=== PATIENT | male | born 1950 | race Caucasian/White ===

== ENCOUNTER → 2016-08-25 | Outpatient (CLI) | payer MEDICARE ==
[2016-08-25 15:41] LABS: CHLORIDE,CL 104 mmol/L (98-110); SODIUM,NA 138 mmol/L (136-146)
--- NOTE | 2016-08-25 15:45 | CR ---
EXAMINATION: Two-view chest (PA and Lateral views). HISTORY: Chest pain. FINDINGS: The trachea is midline. The cardiomediastinal silhouette is within normal limits. No pulmonary infil trates, effusions or pneumothorax. Osseous structures appear unremarkable. IMPRESSION: No acute cardiopulmonary process.
== END ==
LOC: MW.CHRC 14:22
PROVIDERS: ATTEND Family Medicine
DX: R07.9 Chest pain, unspecified (principal); I10 Essential (primary) hypertension; Z91.14 Patient's other noncompliance with medication regimen
CPT/HCPCS: 36415; 71020; 71020-26; 80053; 84484; 85025; 99214

== ENCOUNTER 2016-08-26 16:08 | Observation (INO) | payer MEDICARE ==
[2016-08-26] MEDS ORDERED: Sodium Chloride 0.9% 2.5 ML Syringe FLUSH PRN ×2 (16:32)
[2016-08-26] MEDS ORDERED: Sodium Chloride 0.9% 10 ML Syringe FLUSH PRN ×2 (16:32)
[2016-08-26] MEDS ORDERED: Lisinopril 5 MG Tab PO ONE (16:44)
--- NOTE | 2016-08-26 16:44 | EDM.PDOC ---
ED HPI GENERAL MEDICAL PROBLEM - General Chief Complaint: General Stated Complaint: HIGH BLOOD PRESSURE Time Seen by Provider: 08/26/16 16:26 Source of Information: Reports: Patient History Limitations: Reports: No limitations - History of Present Illness INITIAL COMMENTS - FREE TEXT/NARRATIVE: HISTORY AND PHYSICAL: History of present illness: [65-year-old male with a history of difficult to control hypertension now presents emergent department because his blood pressure is very elevated. patient states he was on lisinopril and amlodipine prescribed by regulatory affairs associate at [facility] years ago. Today he saw a family practice doctor in the office for the first time . She increased his dose of amlodipine but apparently there was a miscommunication and patient thought he was supposed to stop his lisinopril which he did he states he's been taking the amlodipine but he did not take his other blood pressure medicine yesterday or today. Patient states she's had some recent chest pain not like he went to his primary care doctor yesterday, where he was prescribed nitroglycerin for use as needed and an EKG had been done in the office. he has not had any chest pain today. No nausea vomiting diaphoresis or shortness of air. Patient does not smoke cigarettes he does occasionally smoke cigars. He is not treated for high cholesterol has never been known to be diabetic and has no family history of heart disease. He had a stress test many years ago which he said was unremarkable. He does take a full-strength aspirin prescribe as doctor but he did not take it today. Review of systems: As per history of present illness and below otherwise all systems reviewed and negative. Past medical history: As per history of present illness and as reviewed below otherwise noncontributory. Surgical history: As per history of present illness and as reviewed below otherwise noncontributory. Social history: No reported history of drug or alcohol abuse. Family history: As per history of present illness and as reviewed below otherwise noncontributory. Physical exam: HEENT: Atraumatic, normocephalic, pupils reactive, negative for conjunctival pallor or scleral icterus, mucous membranes moist, throat clear, neck supple, nontender, trachea midline. Lungs: Clear to auscultation, breath sounds equal bilaterally, chest nontender. Heart: S1S2, regular, negative for clicks, rubs, or JVD. Abdomen: Soft, nondistended, nontender. Negative for masses or hepatosplenomegaly. Negative for costovertebral tenderness. Pelvis: Stable nontender. Genitourinary: Deferred. Rectal: Deferred. Extremities: Atraumatic, negative for cords or calf pain. Neurovascular unremarkable. Neuro: Awake, alert, oriented. Cranial nerves II through XII unremarkable. Cerebellum unremarkable. Motor and sensory unremarkable throughout. Exam nonfocal. Diagnostics: [] Therapeutics: [] Impression: [] Plan: [Patient with accelerated hypertension in the setting of known difficult to control hypertension and variable medication compliance. Chest pain recently and yesterday but not today. EKG with mild ST depression inferiorly and ST segment depression with T wave inversion V4 through V6. Normal sinus rhythm at 80 no STEMI. Troponin negative labs otherwise unremarkable with no evident evidence of endorgan injury. Patient has had no recent cardiac workup and given his recent chest pain and his accelerated hypertension we'll do observation telemetry admission optimize blood pressure control and establish stability as well as for cardiac workup. Definitive disposition and diagnosis as appropriate pending reevaluation and review of above. - Related Data Allergies Allergy/AdvReac Type Severity Reaction Status Date / Time No Known Allergies Allergy Verified 08/26/16 16:30 Home Meds: Home Meds Aspirin [Ecotrin] 81 mg PO DAILY 08/26/16 [History] Lisinopril [Zestril] 5 mg PO DAILY 08/26/16 [History] Nitroglycerin [Nitrostat] PRN 08/26/16 [History] amLODIPine [Norvasc] 10 mg PO BEDTIME 08/26/16 [History] ED ROS GENERAL - Review of Systems Review Of Systems: See Below (Per history of present illness) ED EXAM, GENERAL - Physical Exam Exam: See Below (Per history of present illness) Course - Vital Signs Last Recorded V/S: Last Vital Signs Temp 36.7 C 08/26/16 16:26 Pulse 71 08/26/16 17:39 Resp 18 08/26/16 17:39 BP 209/105 H 08/26/16 17:49 Pulse Ox 98 08/26/16 17:39 - Orders/Labs/Meds Orders: Active Orders 24 hr Category Date Time Status EKG Documentation Completion [RC] STAT Care 08/26/16 16:32 Active Peripheral IV Care [RC] . DIRECTED Care 08/26/16 16:32 Active Chest 1V Frontal [CR] Stat Exams 08/26/16 16:32 Taken Sodium Chloride 0.9% [Saline Flush] Med 08/26/16 16:32 Active 10 ml FLUSH ASDIRECTED PRN Sodium Chloride 0.9% [Saline Flush] Med 08/26/16 16:32 Active 10 ml FLUSH ASDIRECTED PRN Sodium Chloride 0.9% [Saline Flush] Med 08/26/16 16:32 Active 2.5 ml FLUSH ASDIRECTED PRN Sodium Chloride 0.9% [Saline Flush] Med 08/26/16 16:32 Active 2.5 ml FLUSH ASDIRECTED PRN Peripheral IV Insertion Adult [OM.PC] Stat Oth 08/26/16 16:32 Ordered Medication Orders Sodium Chloride (Saline Flush) 10 ml FLUSH ASDIRECTED PRN PRN Reason: Keep Vein Open Sodium Chloride (Saline Flush) 2.5 ml FLUSH ASDIRECTED PRN PRN Reason: Keep Vein Open Sodium Chloride (Saline Flush) 10 ml FLUSH ASDIRECTED PRN PRN Reason: Keep Vein Open Sodium Chloride (Saline Flush) 2.5 ml FLUSH ASDIRECTED PRN PRN Reason: Keep Vein Open Labs: Laboratory Tests 08/26/16 08/26/16 08/26/16 Range/Units 16:44 16:44 16:44 WBC 10.86 (4.0-11.0) K/uL RBC 5.35 (4.50-5.90) M/uL Hgb 16.3 (13.0-17.0) g/dL Hct 45.3 (38.0-50.0) % MCV 84.7 (80.0-98.0) fL MCH 30.5 (27.0-32.0) pg MCHC 36.0 (31.0-37.0) g/dL RDW Std Deviation 38.6 (28.0-62.0) fl RDW Coeff of Kimo 13 (11.0-15.0) % Plt Count 175 (150-400) K/uL MPV 8.90 (7.40-12.00) fL Neut % (Auto) 64.6 (48.0-80.0) % Lymph % (Auto) 19.5 (16.0-40.0) % Jackson % (Auto) 13.3 (0.0-15.0) % Eos % (Auto) 2.2 (0.0-7.0) % Baso % (Auto) 0.4 (0.0-1.5) % Neut # (Auto) 7.0 H (1.4-5.7) K/uL Lymph # (Auto) 2.1 (0.6-2.4) K/uL Jackson # (Auto) 1.4 H (0.0-0.8) K/uL Eos # (Auto) 0.2 (0.0-0.7) K/uL Baso # (Auto) 0.0 (0.0-0.1) K/uL Nucleated RBC % 0.0 /100WBC Nucleated RBCs # 0 K/uL Sodium 138 (136-146) mmol/L Potassium 3.9 (3.5-5.1) mmol/L Chloride 105 (98-110) mmol/L Carbon Dioxide 21 (21-31) mmol/L BUN 20 (6.0-23.0) mg/dL Creatinine 1.1 (0.6-1.5) mg/dL Est Cr Clr Drug Dosing 68.21 mL/min Estimated GFR (MDRD) > 60.0 ml/min Glucose 113 H (60-110) mg/dL Calcium 9.8 (8.8-10.8) mg/dL Troponin I < 0.10 (0.0-0.29) NG/ML Meds: Medications Generic Name Dose Route Start Last Admin Trade Name Freq PRN Reason Stop Dose Admin Sodium Chloride 10 ml 08/26/16 16:32 Saline Flush FLUSH ASDIRECTED PRN Keep Vein Open Sodium Chloride 2.5 ml 08/26/16 16:32 Saline Flush FLUSH ASDIRECTED PRN Keep Vein Open Sodium Chloride 10 ml 08/26/16 16:32 Saline Flush FLUSH ASDIRECTED PRN Keep Vein Open Sodium Chloride 2.5 ml 08/26/16 16:32 Saline Flush FLUSH ASDIRECTED PRN Keep Vein Open Discontinued Medications Generic Name Dose Route Start Last Admin Trade Name Freq PRN Reason Stop Dose Admin Aspirin 324 mg 08/26/16 17:54 08/26/16 18:05 Aspirin PO 08/26/16 17:55 324 mg ONETIME ONE Administration Clonidine HCl 0.2 mg 08/26/16 17:43 08/26/16 17:49 Catapres PO 08/26/16 17:44 0.2 mg ONETIME ONE Administration Lisinopril 5 mg 08/26/16 16:44 08/26/16 17:03 Prinivil PO 08/26/16 16:45 5 mg ONETIME ONE Administration Nitroglycerin 1 gm 08/26/16 18:06 Nitro-Bid 2% TOP 08/26/16 18:07 ONETIME ONE Departure - Departure Time of Disposition: 18:16 Disposition: Refer to Observation Condition: good Clinical Impression: Accelerated hypertension, Chest pain, Abnormal EKG - My Orders Last 24 Hours: My Active Orders 08/26/16 16:32 EKG Documentation Completion [RC] STAT Peripheral IV Care [RC] . DIRECTED Chest 1V Frontal [CR] Stat Sodium Chloride 0.9% [Saline Flush] 10 ml FLUSH ASDIRECTED PRN Sodium Chloride 0.9% [Saline Flush] 10 ml FLUSH ASDIRECTED PRN Sodium Chloride 0.9% [Saline Flush] 2.5 ml FLUSH ASDIRECTED PRN Sodium Chloride 0.9% [Saline Flush] 2.5 ml FLUSH ASDIRECTED PRN Peripheral IV Insertion Adult [OM.PC] Stat - Assessment/Plan Last 24 Hours: My Active Orders 08/26/16 16:32 EKG Documentation Completion [RC] STAT Peripheral IV Care [RC] . DIRECTED Chest 1V Frontal [CR] Stat Sodium Chloride 0.9% [Saline Flush] 10 ml FLUSH ASDIRECTED PRN Sodium Chloride 0.9% [Saline Flush] 10 ml FLUSH ASDIRECTED PRN Sodium Chloride 0.9% [Saline Flush] 2.5 ml FLUSH ASDIRECTED PRN Sodium Chloride 0.9% [Saline Flush] 2.5 ml FLUSH ASDIRECTED PRN Peripheral IV Insertion Adult [OM.PC] Stat
[2016-08-26 17:09] LABS: CHLORIDE,CL 105 mmol/L (98-110); SODIUM,NA 138 mmol/L (136-146)
[2016-08-26] MEDS ORDERED: cloNIDine 0.1 MG Tab PO ONE (17:43)
[2016-08-26] MEDS ORDERED: Aspirin 81 MG Tab.Chew PO ONE (17:54)
[2016-08-26] MEDS ORDERED: Nitroglycerin 2% Oint 1 GM UD Packet TOP ONE (18:06)
--- NOTE | 2016-08-26 19:32 | PCM.HP ---
[id number] Diagnosis/Problem Admission Diagnosis/Problem Chest pain hypertensive urgency Source of Information: Patient History Limitations: Reports: No limitations - History of Present Illness Symptom Onset Date: 08/25/16 Duration of Symptoms: Reports: Minutes: Location: Reports: chest Quality: Reports: Other (discomfort he illustrates with mild pressure of thumb) Severity: mild Improves with: Reports: None Worsens with: Reports: None Associated Symptoms: Reports: no other symptoms Chest Pain Score (Numeric/FACES): 0 - Related Data Allergies/Adverse Reactions: Allergies Allergy/AdvReac Type Severity Reaction Status Date / Time No Known Allergies Allergy Verified 08/26/16 16:30 Home Medications: Home Meds Aspirin [Ecotrin] 81 mg PO DAILY 08/26/16 [History] Losartan [Cozaar] 100 mg PO DAILY #30 tablet 08/27/16 [Rx] amLODIPine [Norvasc] 10 mg PO BEDTIME #30 tablet 08/27/16 [Rx] cloNIDine [Catapres] 0.1 mg PO Q12HR #60 tablet 08/27/16 [Rx] Past Medical History HEENT History: Reports: None Cardiovascular History: Reports: High cholesterol (was 247 [id number]), Hypertension Respiratory History: Reports: None Gastrointestinal History: Reports: None Genitourinary History: Reports: None Musculoskeletal History: Reports: Gout (uric acid 8.9 2010. unclear if on allopurinol at that time. reports taking it prn only) Neurological History: Reports: None Psychiatric History: Reports: None Endocrine/Metabolic History: Reports: None Hematologic History: Reports: None Immunologic History: Reports: None Oncologic (Cancer) History: Reports: None Dermatologic History: Reports: None - Infectious Disease History Infectious Disease History: Reports: None - Past Surgical History Head Surgeries/Procedures: Reports: None HEENT Surgical History: Reports: None Cardiovascular Surgical History: Reports: None Respiratory Surgical History: Reports: None GI Surgical History: Reports: Hernia, abdominal Male Surgical History: Reports: None Musculoskeletal Surgical History: Reports: None Dermatological Surgical History: Reports: None Social & Family History - Family History Family Medical History: Noncontributory (parents lived to 90ies 5 siblings ok) Musculoskeletal: Reports: None - Tobacco Use Smoking Status *Q: Current Some Day Smoker Tobacco Use Within Last Twelve Months: Cigars (does not inhale) Years of Tobacco use: 40 Packs/Tins Daily: 0 Second Hand Smoke Exposure: No - Caffeine Use Caffeine Use: Reports: None - Alcohol Use Days Per Week of Alcohol Use: 1 Number of Drinks Per Day: 1 Total Drinks Per Week: 1 Alcohol Use in Last Twelve Months: Yes - Recreational Drug Use Recreational Drug Use: No - Living Situation & Occupation Social History 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, still does various jobs for farmers , drives truck H&P Review of Systems - Review of Systems: Review Of Systems: See Below General: Reports: no symptoms HEENT: Reports: no symptoms Pulmonary: Reports: Shortness of Breath (pushing snow in winter) Cardiovascular: Reports: chest pain (seems random,not exertional) Gastrointestinal: Reports: No symptoms Genitourinary: Reports: no symptoms Musculoskeletal: Reports: joint pain Skin: Reports: no symptoms Psychiatric: Reports: no symptoms Neurological: Reports: Other (claims poor memory, forgets to take pills) Hematologic/Lymphatic: Reports: no symptoms Immunologic: Reports: no symptoms Exam - Exam Exam: See Below - Vital Signs Vital Signs: Last Vital Signs Temp 36.4 C 08/26/16 18:40 Pulse 74 08/26/16 18:40 Resp 18 08/26/16 18:40 BP 228/118 H 08/26/16 18:40 Pulse Ox 96 08/26/16 18:40 Weight: 89.358 kg - Exam General: alert, oriented HEENT: Conjunctiva clear Neck: trachea midline Lungs: Clear to auscultation Cardiovascular: regular rate, regular rhythm Abdomen: normal bowel sounds (Male) Exam: Deferred Rectal (Males) Exam: Deferred Back Exam: normal inspection Extremities: normal inspection Skin: warm, intact Neurological: cranial nerves intact Neuro Extensive - Mental Status: alert, oriented x3 Neuro Extensive - Motor, Sensory, Reflexes: normal gait Psychiatric: labile mood - Patient Data Result Diagrams: 08/26/16 16:44 08/26/16 16:44 *Q Meaningful Use (ADM) - VTE *Q VTE Criteria *Q: - Stroke *Q Stroke Criteria *Q: - AMI *Q AMI Criteria *Q: Problem List Initiated/Reviewed/Updated: Yes Orders Last 24hrs: Active Orders 24 hr Category Date Time Status Splinting [RC] ASDIRECTED Care 08/26/16 18:25 Active Telemetry Monitoring [Cardiac Monitoring] [RC] Q8H Care 08/26/16 18:20 Active Medication Orders Sodium Chloride (Saline Flush) 10 ml FLUSH ASDIRECTED PRN PRN Reason: Keep Vein Open Sodium Chloride (Saline Flush) 2.5 ml FLUSH ASDIRECTED PRN PRN Reason: Keep Vein Open Sodium Chloride (Saline Flush) 10 ml FLUSH ASDIRECTED PRN PRN Reason: Keep Vein Open Sodium Chloride (Saline Flush) 2.5 ml FLUSH ASDIRECTED PRN PRN Reason: Keep Vein Open Assessment/Plan Comment:: chest pain, possibly angina though pts description is very vague Hypertension that pt claims is lifelong from childhood with recent hypertensive urgency iHyperuricemia and intercritical gout continue amlodipine 10 losartan 100 clonidine 0.2 willprobably stop NTG paste for headache
[2016-08-26] MEDS: Hydrochlorothiazide/Losartan 12.5-50 mg Tab PO SCH (20:15)
[2016-08-26] MEDS: cloNIDine 0.1 MG Tab PO SCH (20:16)
[2016-08-27] MEDS: cloNIDine 0.1 MG Tab PO SCH (07:59)
[2016-08-27] MEDS: Hydrochlorothiazide/Losartan 12.5-50 mg Tab PO SCH (07:59)
[2016-08-27] MEDS ORDERED: Hydrochlorothiazide/Losartan 12.5-50 mg Tab PO SCH (09:00)
--- NOTE | 2016-08-27 11:56 | PCM.PN ---
[id number] he had " a little" or not), tolerating diet - Review of Systems General: Reports: No Symptoms HEENT: Reports: no symptoms Pulmonary: Reports: no symptoms Cardiovascular: Reports: No Symptoms Gastrointestinal: Reports: No symptoms Genitourinary: Reports: no symptoms Musculoskeletal: Reports: no symptoms Skin: Reports: no symptoms Neurological: Reports: No Symptoms Psychiatric: Reports: no symptoms - Patient Data Vitals - most recent: Last Vital Signs Temp 36.6 C 08/27/16 08:00 Pulse 67 08/27/16 08:00 Resp 16 08/27/16 08:00 BP 129/73 08/27/16 08:00 Pulse Ox 96 08/27/16 08:00 Weight - most recent: 89.358 kg I&O - last 24 hours: Intake & Output 08/26/16 08/27/16 08/27/16 22:59 06:59 14:59 Intake Total 600 Output Total 1050 Balance -450 Lab Results last 24 hrs: Laboratory Results - last 24 hr 08/26/16 08/27/16 Range/Units 23:50 06:06 Troponin I < 0.10 < 0.10 (0.0-0.29) NG/ML Med Orders - Current: Current Medications Clonidine HCl (Catapres) 0.1 mg PO Q12HR [facility] Last Admin: 08/27/16 07:59 Dose: 0.1 mg HCTZ/Losartan Potassium (Hyzaar 50-12.5 Mg) 1 tab PO DAILY [facility] Last Admin: 08/27/16 07:59 Dose: 1 tab Sodium Chloride (Saline Flush) 10 ml FLUSH ASDIRECTED PRN PRN Reason: Keep Vein Open Sodium Chloride (Saline Flush) 2.5 ml FLUSH ASDIRECTED PRN PRN Reason: Keep Vein Open Sodium Chloride (Saline Flush) 10 ml FLUSH ASDIRECTED PRN PRN Reason: Keep Vein Open Sodium Chloride (Saline Flush) 2.5 ml FLUSH ASDIRECTED PRN PRN Reason: Keep Vein Open Discontinued Medications Aspirin (Aspirin) 324 mg PO ONETIME ONE Stop: 08/26/16 17:55 Last Admin: 08/26/16 18:05 Dose: 324 mg Clonidine HCl (Catapres) 0.2 mg PO ONETIME ONE Stop: 08/26/16 17:44 Last Admin: 08/26/16 17:49 Dose: 0.2 mg HCTZ/Losartan Potassium (Hyzaar 50-12.5 Mg) 1 tab PO DAILY [facility] Lisinopril (Prinivil) 5 mg PO ONETIME ONE Stop: 08/26/16 16:45 Last Admin: 08/26/16 17:03 Dose: 5 mg Nitroglycerin (Nitro-Bid 2%) 1 gm TOP ONETIME ONE Stop: 08/26/16 18:07 Last Admin: 08/26/16 18:46 Dose: 1 gm - Exam General: alert HEENT: Pupils equal Neck: trachea midline Lungs: Clear to auscultation Cardiovascular: Regular Rate Abdomen: bowel sounds present (Male) Exam: Deferred Back Exam: normal inspection Extremities: no edema Skin: warm Wound/Incisions: healing well Neurological: no new focal deficit Psy/Mental Status: alert - Problem List Review Problem List Initiated/Reviewed/Updated: Yes - My Orders Last 24 Hours: My Active Orders 08/26/16 18:20 Telemetry Monitoring [Cardiac Monitoring] [RC] Q8H 08/26/16 20:02 Hydrochlorothiazide/Losartan [Hyzaar 50-12.5 MG] 1 tab PO DAILY 08/26/16 21:00 cloNIDine [Catapres] 0.1 mg PO Q12HR 08/27/16 09:38 Code Status [Resuscitation Status] Routine - Assessment Assessment:: ECG and troponins normal moderately unfavorable lipids with [id number] [id number] will D/C on usual meds thinks he will go to clinic for follow up. Will defer to them regarding antilipid and gout regimen - Plan Plan:: chest pain, possibly angina though pts description is very vague Hypertension that pt claims is lifelong from childhood with recent hypertensive urgency iHyperuricemia and intercritical gout continue amlodipine 10 losartan 100 clonidine 0.2 willprobably stop NTG paste for headache
--- NOTE | 2016-08-27 12:01 | PCM.DCSUM1 ---
Discharge Summary - Hospital Course Free Text/Narrative:: Pt admitted with vague, non exerttional chest discomfort and risk factors for CAD. Ruled out - Discharge Data Discharge Date: 08/27/16 Discharge Disposition: Home, Self-Care 01 Condition: Fair - Patient Instructions Diet: Heart Healthy Diet (printed instruction provided) Activity: As Tolerated - Discharge Plan Home Medications: Home Meds Aspirin [Ecotrin] 81 mg PO DAILY 08/26/16 [History] Lisinopril [Zestril] 5 mg PO DAILY 08/26/16 [History] Losartan [Cozaar] 100 mg PO DAILY 08/26/16 [History] Nitroglycerin [Nitrostat] PRN 08/26/16 [History] amLODIPine [Norvasc] 10 mg PO BEDTIME 08/26/16 [History] Patient Handouts: Heart-Healthy Eating Plan, [id number] Referrals: Jatin Hinds MD [Primary Care Provider] - - Discharge Summary/Plan Comment DC Time >30 min.: No - General Info Functional Status: Reports: pain controlled - Review of Systems General: Reports: No Symptoms HEENT: Reports: no symptoms Pulmonary: Reports: no symptoms Cardiovascular: Reports: No Symptoms, Chest Pain (very vague whether he had "a little" or not) Gastrointestinal: Reports: No symptoms Genitourinary: Reports: no symptoms Musculoskeletal: Reports: no symptoms Skin: Reports: no symptoms Neurological: Reports: No Symptoms Psychiatric: Reports: no symptoms - Patient Data Vitals - Most Recent: Last Vital Signs Temp 36.6 C 08/27/16 08:00 Pulse 67 08/27/16 08:00 Resp 16 08/27/16 08:00 BP 129/73 08/27/16 08:00 Pulse Ox 96 08/27/16 08:00 Weight - Most Recent: 89.358 kg I&O - Last 24 hours: Intake & Output 08/26/16 08/27/16 08/27/16 22:59 06:59 14:59 Intake Total 600 Output Total 1050 Balance -450 Lab Results - Last 24 hrs: Laboratory Results - last 24 hr 08/26/16 08/27/16 Range/Units 23:50 06:06 Troponin I < 0.10 < 0.10 (0.0-0.29) NG/ML Med Orders - Current: Current Medications Clonidine HCl (Catapres) 0.1 mg PO Q12HR [facility] Last Admin: 08/27/16 07:59 Dose: 0.1 mg HCTZ/Losartan Potassium (Hyzaar 50-12.5 Mg) 1 tab PO DAILY [facility] Last Admin: 08/27/16 07:59 Dose: 1 tab Sodium Chloride (Saline Flush) 10 ml FLUSH ASDIRECTED PRN PRN Reason: Keep Vein Open Sodium Chloride (Saline Flush) 2.5 ml FLUSH ASDIRECTED PRN PRN Reason: Keep Vein Open Sodium Chloride (Saline Flush) 10 ml FLUSH ASDIRECTED PRN PRN Reason: Keep Vein Open Sodium Chloride (Saline Flush) 2.5 ml FLUSH ASDIRECTED PRN PRN Reason: Keep Vein Open Discontinued Medications Aspirin (Aspirin) 324 mg PO ONETIME ONE Stop: 08/26/16 17:55 Last Admin: 08/26/16 18:05 Dose: 324 mg Clonidine HCl (Catapres) 0.2 mg PO ONETIME ONE Stop: 08/26/16 17:44 Last Admin: 08/26/16 17:49 Dose: 0.2 mg HCTZ/Losartan Potassium (Hyzaar 50-12.5 Mg) 1 tab PO DAILY [facility] Lisinopril (Prinivil) 5 mg PO ONETIME ONE Stop: 08/26/16 16:45 Last Admin: 08/26/16 17:03 Dose: 5 mg Nitroglycerin (Nitro-Bid 2%) 1 gm TOP ONETIME ONE Stop: 08/26/16 18:07 Last Admin: 08/26/16 18:46 Dose: 1 gm - Exam General: Reports: alert, oriented HEENT: Reports: Pupils equal, Pupils reactive, EOMI, Mucous membr. moist/pink Neck: Reports: supple Lungs: Reports: Clear to auscultation, Normal respiratory effort Cardiovascular: Reports: Regular Rate, Regular Rhythm Abdomen: Reports: bowel sounds present, soft, no tenderness, no distension (Male) Exam: No hernia, Normal inspection, Normal prostate, Circumcised Rectal (Males) Exam: Normal exam, Normal rectal tone, Prostate normal Back Exam: Reports: normal inspection, full range of motion Extremities: Reports: no edema, normal pulses Skin: Reports: warm, dry, intact Wound/Incisions: Reports: healing well Neurological: Reports: no new focal deficit Psy/Mental Status: Reports: alert, normal affect, normal mood *Q Meaningful Use (DIS) - VTE *Q VTE Criteria *Q: - Stroke *Q Stroke Criteria *Q: - AMI *Q AMI Criteria *Q:
[2016-08-27 14:42] VITALS: BP 141/63
--- NOTE | 2016-08-28 17:53 | CR ---
EXAM DATE: 08/26/16 PATIENT'S AGE: 65 Patient: SIMON GUZMAN Facility: [place], [place] Site . Site : [id number] Study: XRay Chest [id number] 5:22:00 PM Ordering Physician: Kaleb Burnette Final Report: INDICATION: High blood pressure COMPARISON: July, Single AP view Findings: The lungs are clear. Pulmonary vascularity, mediastinum and cardiac silhouette are within normal limits. No effusions and no pneumothorax. Osseous structures appear unremarkable. Impression: No evidence of acute cardiopulmonary disease. Dictated by: Manas Acuña MD @ 08/26/2016 17:38:27 (Electronic Signature) Report Signed by Proxy and Original Signed Document filed in the Medical Record. MTDD
== END 2016-08-27 15:24 | disposition home or self-care (01) ==
LOC: MW.ED 16:08 → MW.MS 18:07
PROVIDERS: ADMIT Internal Medicine; ATTEND Internal Medicine
DX: R07.9 Chest pain, unspecified (principal); I16.0 Hypertensive urgency; I10 Essential (primary) hypertension; M10.9 Gout, unspecified; E78.00 Pure hypercholesterolemia, unspecified; F17.210 Nicotine dependence, cigarettes, uncomplicated; Z79.82 Long term (current) use of aspirin; Z79.899 Other long term (current) drug therapy; Z98.890 Other specified postprocedural states
CPT/HCPCS: 36415; 71010; 80048; 80061; 84484; 84550; 85025; 93005; 99285; A9270; G0378

== ENCOUNTER 2018-11-25 07:58 | Day surgery (SDC) | payer MEDICARE, OTHER ==
[~2018-11-25 07:58] MED LIST: Lactated Ringers 1,000 ML IV SCH; Lidocaine 2% 5 ML SDV ONE; Midazolam 1 MG/ML 2 ML SDV ONE; Propofol 200 MG/20 ML SDV ONE; fentaNYL 100 MCG/2 ML SDV ONE
--- NOTE | 2018-11-25 09:19 | PCM.PREANE ---
Preanesthetic Assessment - Anesthesia/Transfusion/Family Hx Anesthesia History: Prior Anesthesia Without Reaction Other Type of Anesthesia Reaction Comment: Carpal Tunnel Release- was the first one in day surgery and the last one ou Family History of Anesthesia Reaction: No Transfusion History: No Prior Transfusion(s) Intubation History: Unknown - Review of Systems General: No Symptoms Pulmonary: No Symptoms Cardiovascular: No Symptoms Gastrointestinal: Difficulty Swallowing Neurological: No Symptoms Other: Reports: None - Physical Assessment NPO Status Date: 11/25/18 NPO Status Time: 08:00 O2 Sat by Pulse Oximetry: 95 Respiratory Rate: 16 Vital Signs: Last Vital Signs Temp 35.7 C 11/25/18 08:45 Pulse 70 11/25/18 08:45 Resp 16 11/25/18 08:45 BP 171/92 H 11/25/18 08:45 Pulse Ox 95 11/25/18 08:45 Height: 5 ft 10 in Weight: 88.904 kg ASA Class: 2 Mental Status: Alert & Oriented x3 Airway Class: Mallampati = 2 Dentition: Reports: Normal Dentition (grinded edges), [place](s) (x 6-7 upper and lower) Thyro-Mental Finger Breadths: 3 Mouth Opening Finger Breadths: 2 ROM/Head Extension: Limited/Partial Lungs: Clear to Auscultation, Normal Respiratory Effort Cardiovascular: Regular Rate, Regular Rhythm - Allergies Allergies/Adverse Reactions: Allergies Allergy/AdvReac Type Severity Reaction Status Date / Time No Known Allergies Allergy Verified 11/20/18 16:37 - Blood Blood Available: No - Anesthesia Plan Pre-Op Medication Ordered: None - Acknowledgements Anesthesia Type Planned: MAC Pt an Appropriate Candidate for the Planned Anesthesia: Yes Alternatives and Risks of Anesthesia Discussed w Pt/Guardian: Yes Pt/Guardian Understands and Agrees with Anesthesia Plan: Yes PreAnesthesia Questionnaire HEENT History: Reports: Cataract, Other (See Below) Other HEENT History: uses reading glasses Cardiovascular History: Reports: Hypertension Respiratory History: Reports: None Gastrointestinal History: Reports: Hiatal Hernia Genitourinary History: Reports: Other (See Below) (urinary frequency) Musculoskeletal History: Reports: Fracture, Gout, RA Other Musculoskeletal History: hx of fx left foot Neurological History: Reports: Other (See Below) Other Neuro History: 2 month hx of left sided tremor Psychiatric History: Reports: None Endocrine/Metabolic History: Reports: None Hematologic History: Reports: None Immunologic History: Reports: None Oncologic (Cancer) History: Reports: None Dermatologic History: Reports: None - Infectious Disease History Infectious Disease History: Reports: None - Past Surgical History Head Surgeries/Procedures: Reports: None HEENT Surgical History: Reports: Cataract Surgery Cardiovascular Surgical History: Reports: None Respiratory Surgical History: Reports: None GI Surgical History: Reports: Appendectomy, Srini Fundoplication Other GI Surgeries/Procedures: Laparoscopic in '02, still small residual hernia Male Surgical History: Reports: None Musculoskeletal Surgical History: Reports: Carpal Tunnel Dermatological Surgical History: Reports: None - SUBSTANCE USE Smoking Status *Q: Current Some Day Smoker Tobacco Use Within Last Twelve Months: Cigars Recreational Drug Use History: No - HOME MEDS Home Medications: Home Meds Carboxymethylcellulose Sodium [Refresh Plus 0.5%] 1 drop EYEBOTH ASDIRECTED PRN 11/20/18 [History] Ergocalciferol (Vitamin D2) [Vitamin D2] 50,000 unit PO WEEKLY 11/20/18 [History ] Losartan [Cozaar] 100 mg PO BEDTIME 11/20/18 [History] amLODIPine [Norvasc] 10 mg PO QAM 11/20/18 [History] - CURRENT (IN HOUSE) MEDS Current Meds: Current Medications Lactated Ringer's (Ringers, Lactated) 1,000 mls @ 125 mls/hr IV ASDIRECTED [facility] Last Admin: 11/25/18 08:56 Dose: 125 mls/hr Discontinued Medications Fentanyl (Sublimaze) Confirm Administered Dose 100 mcg .ROUTE .STK-MED ONE Stop: 11/25/18 07:10 Lidocaine (Xylocaine-Mpf 2%) Confirm Administered Dose 5 ml .ROUTE .STK-MED ONE Stop: 11/25/18 07:09 Midazolam HCl (Versed 1 Mg/Ml) Confirm Administered Dose 2 mg .ROUTE .STK-MED ONE Stop: 11/25/18 07:10 Propofol (Diprivan 20 Ml) Confirm Administered Dose 400 mg .ROUTE .STK-MED ONE Stop: 11/25/18 07:10
--- NOTE | 2018-11-25 09:40 | PCM.OPNOTE ---
- General Post-Op/Procedure Note Date of Surgery/Procedure: 11/25/18 Operative Procedure(s): Esophagogastroduodenoscopy w/ gastric biopsies, gastric polypectomy and esophageal biopsies. Pre Op Diagnosis: Dysphagia Post-Op Diagnosis: Gastritis. Gastric polyp. Esophagitis. Primary Surgeon: Fran Mcneal Condition: Good Free Text/Narrative:: DICTATION [id number] CPT CODE [id number]
[2018-11-25] MEDS ORDERED: Lactated Ringers 1,000 ML IV SCH (09:45)
[2018-11-25 10:11] VITALS: BP 130/82
--- NOTE | 2018-11-25 13:42 | OR ---
SURGEON: Fran Mcneal M.D. DATE OF PROCEDURE: 11/25/2018 OPERATION PERFORMED: Esophagogastroduodenoscopy with gastric biopsies, gastric polypectomy, and esophageal biopsies. ANESTHESIA: MAC. ASA CLASSIFICATION: II. PREOPERATIVE DIAGNOSIS: Dysphagia. POSTOPERATIVE DIAGNOSES: 1. [id number] gastritis. 2. Gastric polyp. 3. Hiatal hernia with esophagitis. DESCRIPTION OF PROCEDURE: The patient was taken to the endoscopy room and positioned on the endoscopy table in the supine position. Time-out was called for appropriate identification of the patient and procedure. Monitored anesthesia care was provided. The bite block was placed between the patient's teeth. The gastroscope was inserted through the bite block, into the oropharynx, and advanced without difficulty through the esophagus and stomach into the duodenum, where examination was carried out in a retrograde fashion. The duodenum shows no acute inflammatory changes or ulcerations. The stomach does show mild-to- moderate gastritis. Antral biopsies were obtained to look for the presence of Helicobacter pylori. The gastroscope was retroflexed to visualize the proximal stomach. The patient does have a small hiatal hernia that was best seen in a forward viewing fashion. The scope was then straightened and slowly withdrawn. One polyp was encountered in the proximal stomach, and this was removed with the cold biopsy forceps. The gastroscope was then withdrawn through the GE junction, which does show acute inflammatory changes. No ulcerations were noted within the esophagus. There do appear to be some inflammatory changes suggestive of esophagitis, and separate biopsies of the esophagus were obtained. The esophagus itself demonstrates poor contractility. No mid or proximal lesions were identified. No stricture was noted. The vocal cords were briefly visualized as the scope was withdrawn and noted to move symmetrically. The gastroscope was then removed with the patient having tolerated the procedure well. He was taken to recovery room in stable condition. KARIE / GAVI /[id number]
== END 2018-11-25 10:45 | disposition home or self-care (01) ==
LOC: MW.SDS 07:58
PROVIDERS: ATTEND Surgery
DX: K20.9 Esophagitis, unspecified (principal); K29.50 Unspecified chronic gastritis without bleeding; K31.7 Polyp of stomach and duodenum; K44.9 Diaphragmatic hernia without obstruction or gangrene; I10 Essential (primary) hypertension; F17.290 Nicotine dependence, other tobacco product, uncomplicated; M19.90 Unspecified osteoarthritis, unspecified site; M10.9 Gout, unspecified; R41.3 Other amnesia; R25.1 Tremor, unspecified; Z79.899 Other long term (current) drug therapy; Z98.890 Other specified postprocedural states
CPT/HCPCS: 43239; 88305; 88312; J2001; J2250; J2704; J3010; J7120; 00731

== ENCOUNTER 2021-12-20 19:03 | Emergency (ER) | payer MEDICARE, OTHER ==
[2021-12-20] MEDS ORDERED: Acetaminophen/oxyCODONE 325-10 MG Tab PO ONE (20:30)
[2021-12-21 02:50] VITALS: BP 155/93; PULSE 82
== END 2021-12-20 23:00 | disposition home or self-care (01) ==
LOC: MW.ED 19:03
DX: S24.109A Unspecified injury at unspecified level of thoracic spinal cord, initial encounter (principal); I10 Essential (primary) hypertension; Z79.899 Other long term (current) drug therapy; X50.9XXA Other and unspecified overexertion or strenuous movements or postures, initial encounter
CPT/HCPCS: 71045; 71250; 72128; 99284; A9270

== ENCOUNTER 2022-05-18 13:23 | Emergency (ER) | payer MEDICARE, OTHER ==
[2022-05-18 15:04] LABS: CARBON DIOXIDE,CO2 26.6 mmol/L (21.0-32.0); POTASSIUM,K 4.3 mmol/L (3.5-5.1)
[2022-05-18 15:11] LABS: CORONAVIRUS COVID-19 NAA NEGATIVE (NEGATIVE); INFLUENZA A NAA NEGATIVE (NEGATIVE); INFLUENZA B NAA NEGATIVE (NEGATIVE); RESPIRATORY SYNCYTIAL VIR NAA NEGATIVE (NEGATIVE)
[2022-05-18] MEDS ORDERED: Iopamidol 755 MG/ML 500 ML Multipack Bottle IVPUSH ONE (15:55)
[2022-05-18] MEDS ORDERED: Apixaban 5 MG Tab PO STA (17:15)
[2022-05-18] MEDS ORDERED: Rivaroxaban 15 MG Tab PO STA (17:27)
[2022-05-18 18:28] VITALS: BP 155/86; PULSE 68
== END 2022-05-18 18:15 | disposition home or self-care (01) ==
LOC: MW.ED 13:23
DX: I77.71 Dissection of carotid artery (principal); I77.1 Stricture of artery; I10 Essential (primary) hypertension; M06.9 Rheumatoid arthritis, unspecified; Z79.899 Other long term (current) drug therapy; Z79.01 Long term (current) use of anticoagulants; Z20.822 Contact with and (suspected) exposure to COVID-19
CPT/HCPCS: 0241U; 36415; 70450; 70496; 70498; 80053; 85025; 85610; 99284; A9270; Q9967

== ENCOUNTER 2023-12-05 15:34 | Emergency (ER) | payer MEDICARE, OTHER ==
[2023-12-05 16:53] VITALS: BP 132/71; PULSE 70
== END 2023-12-05 16:52 | disposition left against medical advice (07) ==
LOC: MW.ED 15:34
DX: R10.9 Unspecified abdominal pain (principal); I10 Essential (primary) hypertension; Z90.49 Acquired absence of other specified parts of digestive tract; Z79.899 Other long term (current) drug therapy
CPT/HCPCS: 99283

== ENCOUNTER 2024-10-22 14:47 | Emergency (ER) | payer MEDICARE, OTHER ==
[2024-10-22] MEDS: cefTRIAXone 1 GM in Lidocaine 1% 2.1 ML IM ONE (19:12)
[2024-10-22 19:33] VITALS: BP 127/71; PULSE 60
== END 2024-10-22 19:32 | disposition home or self-care (01) ==
LOC: MW.ED 14:47
DX: J02.9 Acute pharyngitis, unspecified (principal); K59.00 Constipation, unspecified; I10 Essential (primary) hypertension; Z79.899 Other long term (current) drug therapy; Z90.49 Acquired absence of other specified parts of digestive tract
CPT/HCPCS: 74018; 87651; 96372; 99283; J0696; J1100; J2003